=== PATIENT | female | born 1995 | race African-American/Black ===

== ENCOUNTER 2018-03-01 00:34 | Inpatient (IN) | payer BC, OTHER ==
[~2018-03-01 00:34] MED LIST: DEPO400I IM; PENVK500 PO
[2018-03-01 00:37] VITALS: BP 156/79; PULSE 114; RESP 15; TEMP 100.3; O2SAT 100
--- NOTE | 2018-03-01 01:22 | PD ---
HPI Chief Complaint: Skin Problem Time Seen by Provider: 00:59 Travel History International Travel<30 days: No Contact w/Intl Traveler<30days: No Traveled to known affect area: No History of Present Illness HPI The patient is a 22 year old female who presents to the [facility] emergency department with a history of left buttock pain that began 3 days ago. She reports that it began after she used [employer] for hair removal. She reports that initially she thought that she had an ingrown hair, however the area of swelling and redness has increased with size. She denies having any known fevers at home. She denies having any nausea, vomiting, or diarrhea. The patient has a history of valvular abnormalities of her heart and reports that she needs pretreatment with antibiotic when she has any procedures. Otherwise on review of systems, the patient denies having any recent cough or congestion, neck pain, chest pain, shortness of breath, abdominal pain, vaginal discharge, urinary symptoms, or neurologic symptoms. 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, and aortic insufficiency, anxiety disorder, history of scoliosis Anxiety: Yes Heart Rhythm Problems: Yes (HEART MURMUR) Cardiovascular Problems: Yes (STS LEAKY HEART VALVE) Diminished Hearing: No Musculoskeletal: Yes (FRACTURED LEFT FOOT, SCOLEOSIS) Immunizations Current: Yes Influenza Vaccination: No ?: Not LMP: 02/23/2018 : 0 Past Surgical History Surgical History: No Previous Surgery Social History Alcohol Use: No Tobacco Use: No Substance Use: No Allergies-Medications (Allergen,Severity, Reaction): Coded Allergies: vancomycin (Verified Allergy, Severe, ITCHING, HIVES, 03/01/18) Reported Meds & Prescriptions Reported Meds & Active Scripts Active Penicillin V Potassium 500 Mg Tab 500 Mg PO TID 10 Days Reported Depo-Provera (Medroxyprogesterone Acetate) 400 Mg/Ml Inj 150 Mg IM Q90D Review of Systems Except as stated in HPI: all other systems reviewed are Neg General / Constitutional: No: Fever Eyes: No: Visual changes HENT: No: Headaches Cardiovascular: No: Chest Pain or Discomfort Respiratory: No: Shortness of Breath Gastrointestinal: No: Nausea, Vomiting, Diarrhea, Abdominal Pain Genitourinary: No: Dysuria Musculoskeletal: Positive: Pain Skin: Positive Rash, Positive Lumps Neurologic: No: Weakness, Focal Abnormalities, Change in Mentation, Slurred Speech, Sensory Disturbance Psychiatric: No: Depression Endocrine: No: Polydipsia Hematologic/Lymphatic: No: Easy Bruising Physical Exam Narrative General: The patient is a well-developed well-nourished female, uncomfortable appearing on arrival related to left buttock pain. Head and Neck exam: Head is normocephalic atraumatic. Eyes: EOMI, pupils are equal round and reactive to light. Nose: Midline septum with pink mucous membranes Mouth: Dentition unremarkable. Moist mucus membranes. Posterior oropharynx is not erythematous. No tonsillar hypertrophy. Uvula midline. Airway patent. Neck: No palpable lymphadenopathy. No nuchal rigidity. No thyromegaly. Cardiovascular: Sinus tachycardia in the 1 teens with a 1/6 murmur, no gallops or rub. No pulse deficit to the extremities on simultaneous auscultation and palpation of her radial artery. Lungs: Clear to auscultation bilaterally. No wheezes, rhonchi, or rales. Abdomen: Soft, without tenderness to palpation in all 4 quadrants of the abdomen. No guarding, rebound, or rigidity. Normal bowel sounds are audible. No tenderness on palpation of McBurney's point. Negative Almeida sign. Extremities: No clubbing, cyanosis, or edema. 2+ pulses in all 4 extremities. Back: No spinous process tenderness to palpation. No costovertebral angle tenderness to palpation. Neurologic Exam: Grossly nonfocal. Skin Exam: The patient was placed in a frog-leg position on the bedpan to further examine the area of interest. The patient was noted to have swelling, redness, warmth, tenderness on palpation along the left side of the perineum and left buttock area. This extends posteriorly along the buttock most caudal aspect. There is no pointing noted. There is no palpable fluctuance. There is no crepitus. Intact skin that is warm and dry. Data Data Last Documented VS Vital Signs Date Time Temp Pulse Resp B/P (MAP) Pulse Ox O2 Delivery O2 Flow Rate FiO2 03/01/18 01:47 17 100 Room Air 03/01/18 00:37 100.3 114 156/79 (104) Orders Orders Complete Blood Count With Diff (03/01/18 01:17) Comprehensive Metabolic Panel (03/01/18 01:17) Blood Culture (03/01/18 01:17) C-Reactive Protein (Crp) (03/01/18 01:17) Lipase (03/01/18:17) Urinalysis - C+S If Indicated (03/01/18:17) Iv Access Insert/Monitor (03/01/18 01:17) Ecg Monitoring (03/01/18:17) Oximetry (03/01/18:17) Ed Urine Pregnancytest Poc (03/01/18 01:17) Lactic Acid Sepsis Protocol (03/01/18 01:17) Us Soft Tissue (03/01/18 ) Sodium Chlor 0.9% 1000 Ml Inj (Ns 1000 M (03/01/18 01:45) Piperacil-Tazo 3.375 Gm Premix (Zosyn 3. (03/01/18 01:45) Vancomycin Inj (Vancomycin Inj) (03/01/18 01:45) Urine Culture (03/01/18 01:30) Acetaminophen (Tylenol) (03/01/18 03:30) Admit Order (Ed Use Only) (03/01/18 03:38) Labs Laboratory Tests Test 03/01/18 01:30 03/01/18 01:40 Urine Color YELLOW Urine Turbidity HAZY Urine pH 7.0 Urine Specific [place] 1.026 Urine Protein 30 mg/dL Urine Glucose (UA) NEG mg/dL Urine Ketones TRACE mg/dL Urine Occult Blood MOD Urine Nitrite NEG Urine Bilirubin NEG Urine Urobilinogen 2.0 MG/DL Urine Leukocyte Esterase MOD Urine RBC 9 /hpf Urine WBC 42 /hpf Urine Squamous Epithelial Cells 12 /hpf Urine Transitional Epithelial Cells <1 /hpf Urine Renal Epithelial Cells <1 /hpf Urine Bacteria OCC /hpf Urine Hyaline Casts 2 /lpf Urine Mucus FEW /lpf Microscopic Urinalysis Comment CULTURE INDICATED White Blood Count 18.3 TH/MM3 Red Blood Count 4.36 MIL/MM3 Hemoglobin 11.0 GM/DL Hematocrit 34.3 % Mean Corpuscular Volume 78.8 FL Mean Corpuscular Hemoglobin 25.3 PG Mean Corpuscular Hemoglobin Concent 32.1 % Red Cell Distribution Width 13.5 % Platelet Count 339 TH/MM3 Mean Platelet Volume 7.6 FL Neutrophils (%) (Auto) 74.3 % Lymphocytes (%) (Auto) 13.4 % Monocytes (%) (Auto) 11.9 % Eosinophils (%) (Auto) 0.1 % Basophils (%) (Auto) 0.3 % Neutrophils # (Auto) 13.6 TH/MM3 Lymphocytes # (Auto) 2.5 TH/MM3 Monocytes # (Auto) 2.2 TH/MM3 Eosinophils # (Auto) 0.0 TH/MM3 Basophils # (Auto) 0.1 TH/MM3 CBC Comment AUTO DIFF Differential Total Cells Counted 100 Neutrophils % (Manual) 81 % Band Neutrophils % 1 % Lymphocytes % 13 % Monocytes % 4 % Basophils % 1 % Neutrophils # (Manual) 15.0 TH/MM3 Differential Comment FINAL DIFF MANUAL Platelet Estimate NORMAL Platelet Morphology Comment NORMAL Red Cell Morphology Comment Blood Urea Nitrogen 10 MG/DL Creatinine 1.06 MG/DL Random Glucose 71 MG/DL Total Protein 8.0 GM/DL Albumin 3.7 GM/DL Calcium Level 8.5 MG/DL Alkaline Phosphatase 72 U/L Aspartate Amino Transf (AST/SGOT) 10 U/L Alanine Aminotransferase (ALT/SGPT) 17 U/L Total Bilirubin 0.4 MG/DL Sodium Level 140 MEQ/L Potassium Level 3.6 MEQ/L Chloride Level 105 MEQ/L Carbon Dioxide Level 25.4 MEQ/L Anion Gap 10 MEQ/L Estimat Glomerular Filtration Rate 80 ML/MIN Lactic Acid Level 1.4 mmol/L C-Reactive Protein 8.74 MG/DL Lipase 273 U/L MDM Medical Decision Making Medical Screen Exam Complete: Yes Emergency Medical Condition: Yes Medical Record Reviewed: Yes Differential Diagnosis Cellulitis, versus abscess, versus myositis, versus necrotizing fasciitis Narrative Course During the course of the patient's emergency department visit, the patient's history, examination, and differential diagnosis were reviewed with the patient. The patient was placed on a personnel monitor with oximetry and frequent blood pressure monitoring. The patient had IV access obtained and blood work sent for analysis. An ultrasound of the soft tissues has been ordered to evaluate for underlying abscess The patient was initially provided normal saline 1 L IV fluid bolus, Zosyn 3.375 g IV, vancomycin 1 g IV. The patient's laboratory studies were reviewed and remarkable for a white count of 18.3 with a left shift and 81 neutrophils, 1 band, hemoglobin 11, platelets 339 8.74, lipase 273, lactic acid 1.4. Urinalysis shows 30 protein trace ketones moderate occult blood 9 RBCs, 42 WBCs, occasional bacteria, culture indicated. Radiology studies were reviewed and remarkable for Last Impressions Soft Tissue Ultrasound 03/01/18 0000 Signed Impressions: Service Date/Time: Thursday, March 01, 2018 02:28 - CONCLUSION: Complex hypoechoic collection most characteristic of an abscess. Jonas Donis MD A call was placed out that the [facility] residents, however was informed that the patient has no longer followed by them as she was last seen in the clinic over 3 years ago. A call was then placed out to the [facility] service for admission. The patient's results were discussed with the patient, including the plan of care. I explained that further testing and/ or monitoring is indicated based on the patient's history, examination, and/ or laboratory findings. Therefore, I recommended admission for additional evaluation. The patient expressed understanding and was agreeable with this plan. The patient was admitted to the hospital in guarded condition and sent to a bed under the care of the [facility] service. Sepsis Criteria SIRS Criteria (2 or more): Heart rate over 90, WBC > 33583, < 4000 or > 10% bands Sepsis Criteria (SIRS+source): Infect source susp/known Physician Communication Physician Communication The patient's case including history, pertinent physical examination findings, and laboratory studies were discussed with Dr. Mcclain. It was agreed that the patient would be admitted to the [facility] service. Diagnosis Primary Impression: Cellulitis of left buttock Additional Impression: Abscess of left buttock Admitting Information Admitting Physician Requests: Admit Emma Velazco MD March 01, 2018 01:22
[2018-03-01] MEDS ORDERED: PIPERACIL-TAZO 3.375 GM PREMIX 50 ML IV ONE (01:45)
[2018-03-01] MEDS ORDERED: VANCOMYCIN INJ 1,000 MG in SODIUM CHLOR 0.9% 250 ML INJ 250 ML IV ONE (01:45)
[2018-03-01] MEDS ORDERED: SODIUM CHLOR 0.9% 1000 ML INJ 1,000 ML IV ONE (01:45)
[2018-03-01 01:47] VITALS: RESP 17; O2SAT 100
[2018-03-01 01:54] LABS: AUTOMATED NEUTROPHIL # 13.6 TH/MM3 (1.8-7.7); BASOPHIL # 0.1 TH/MM3 (0-0.2); BASOPHIL % 0.3 % (0.0-2.0); EOSINOPHIL % 0.1 % (0.0-4.0); HEMATOCRIT 34.3 % (35.0-46.0); LYMPH % 13.4 % (9.0-44.0); LYMPHOCYTE # 2.5 TH/MM3 (1.0-4.8); MEAN CELL VOLUME 78.8 FL (80.0-100.0); MEAN CORPUSCULAR HEMOGLOBIN 25.3 PG (27.0-34.0); MEAN CORPUSCULAR HGB CONC 32.1 % (32.0-36.0); MEAN PLATELET VOLUME 7.6 FL (7.0-11.0); MONO % 11.9 % (0.0-8.0); MONOCYTE # 2.2 TH/MM3 (0-0.9); NEUT % 74.3 % (16.0-70.0); PLATELET COUNT 339 TH/MM3 (150-450); RED BLOOD COUNT 4.36 MIL/MM3 (4.00-5.30); RED CELL DISTRIBUTION WIDTH 13.5 % (11.6-17.2); WHITE BLOOD COUNT 18.3 TH/MM3 (4.0-11.0)
[2018-03-01 02:04] LABS: BILIRUBIN, URINE NEG (NEG); BLOOD, URINE MOD (NEG); GLUCOSE,URINE NEG (NEG); HYALINE CAST, URINE 2 /lpf (RARE); KETONE, URINE TRACE mg/dL (NEG); MUCUS URINE FEW /lpf (OCC); NITRITE,URINE NEG (NEG); RENAL EPITHELIAL CELLS <1 /hpf; SQUAMOUS EPITHELIAL CELL URINE 12 /hpf (0-5); TRANSITIONAL EPI CELLS, URINE <1 /hpf; URINE COLOR YELLOW (YELLW/STRAW); URINE LEUKOCYTE ESTERASE MOD (NEG)
[2018-03-01 02:05] LABS: BACTERIA, URINE OCC /hpf
[2018-03-01 02:10] LABS: ALBUMIN 3.7 GM/DL (3.4-5.0); ALT (GPT) 17 U/L (9-42); AST (GOT) 10 U/L (16-38); BICARBONATE 25.4 MEQ/L (21.0-32.0); BLOOD UREA NITROGEN 10 MG/DL (7-18); C-REACTIVE PROTEIN 8.74 MG/DL (0.00-0.30); CALCIUM 8.5 MG/DL (8.5-10.1); CHLORIDE 105 MEQ/L (98-107); CREATININE 1.06 MG/DL (0.50-1.00); GLOMERULAR FILTRATION RATE 80 ML/MIN (>89); GLUCOSE,RANDOM 71 MG/DL (74-106); SODIUM (NA) 140 MEQ/L (136-145)
[2018-03-01 02:12] LABS: ALKALINE PHOSPHATASE 72 U/L (45-117); TOTAL BILIRUBIN ADULT 0.4 MG/DL (0.2-1.0)
[2018-03-01 02:23] LABS: BANDS 1 % (0-6); BASOPHILS 1 % (0-2); LYMPHOCYTES 13 % (9-44); MONOCYTES 4 % (0-8); POLYS (SEG NEUTROPHILS) 81 % (16-70)
--- NOTE | 2018-03-01 03:04 | RADRPT ---
EXAM DATE/TIME: 03/01/2018 02:28 [place] COMPARISON: No previous studies available for comparison. INDICATIONS : Left buttock abscess. MEDICAL HISTORY : Aneurysm, abdominal. Leaky heart valve. Heart murmur. Anxiety. Scoliosis. aNXIETY. SURGICAL HISTORY : None. ENCOUNTER: Initial ACUITY: 3 days PAIN SCORE: 10/10 LOCATION: Left buttock AREA EVALUATED: Left buttock/perineum. FINDINGS: A targeted ultrasound examination was performed along the left buttox and perineal region and demonst rate a complex hypoechoic collection measuring up to 3.9 x 3.4 x 1.6 cm. There is adjacent increased color-flow in the soft tissues. CONCLUSION: Complex hypoechoic collection most characteristic of an abscess. Jonas Donis MD on March 01, 2018 at 3:01 Board Certified Radiologist. This report was verified electronically.
[2018-03-01] MEDS: ACETAMINOPHEN 325 MG TAB PO ONE ×2 (03:30→03:40)
[2018-03-01] MEDS ORDERED: SODIUM CHLOR 0.9% 1000 ML INJ 1,000 ML IV SCH (03:37)
[2018-03-01] MEDS ORDERED: BISACODYL 10 MG SUPP RECTAL PRN (03:45)
[2018-03-01] MEDS ORDERED: MAGNESIUM HYDROXIDE SUSP 30 ML CUP PO PRN (03:45)
[2018-03-01] MEDS ORDERED: SODIUM CHLORIDE 0.9% FLUSH 10 ML FLUSH IV FLUSH PRN (03:45)
[2018-03-01] MEDS ORDERED: LACTULOSE SYRUP 20 GM/30 ML CUP PO PRN (03:45)
[2018-03-01] MEDS ORDERED: Vancomycin Consult Pharmacy 1 EA OTHER SCH (03:45)
[2018-03-01] MEDS ORDERED: ACETAMINOPHEN 325 MG TAB PO PRN (03:45)
[2018-03-01] MEDS ORDERED: diphenhydrAMINE HCL 50 MG/ML VIAL IV PUSH ONE (03:45)
[2018-03-01] MEDS ORDERED: ACETAMINOPHEN/HYDROcodone 325 MG/5 MG TAB PO PRN (03:45)
[2018-03-01] MEDS ORDERED: SENNOSIDES 8.6 MG TAB PO PRN (03:45)
[2018-03-01] MEDS ORDERED: METOCLOPRAMIDE HCL 10 MG/2 ML VIAL IV PUSH PRN (03:45)
[2018-03-01] MEDS ORDERED: CLINDAMYCIN 900 MG/NS PREMIX 50 ML IV SCH (04:00)
[2018-03-01] MEDS ORDERED: MORPHINE SULFATE 4 MG/ML INJ IV PRN (04:00)
[2018-03-01] MEDS ORDERED: PIPERACIL-TAZO 4.5 GM PREMIX 100 ML IV SCH (08:00)
[2018-03-01] MEDS ORDERED: DOCUSATE SODIUM 50 MG/SENNA 8.6 MG TAB PO SCH (09:00)
[2018-03-01] MEDS ORDERED: SODIUM CHLORIDE 0.9% FLUSH 10 ML FLUSH IV FLUSH SCH (09:00)
== END 2018-03-01 04:45 | disposition left against medical advice (07) | DRG 603 ==
LOC: NEPE 00:34 → NEDA 03:40
PROVIDERS: ADMIT Hospitalist; ATTEND Hospitalist
DX: L03.317 Cellulitis of buttock (principal); F41.9 Anxiety disorder, unspecified; L02.31 Cutaneous abscess of buttock; L50.9 Urticaria, unspecified; T36.8X5A Adverse effect of other systemic antibiotics, initial encounter; R01.1 Cardiac murmur, unspecified; I35.1 Nonrheumatic aortic (valve) insufficiency
CPT/HCPCS: 76999; 80053; 81001; 83605; 83690; 84703; 85007; 85027; 86140; 87040; 87086; J1200; J2543; J3370; J7030; J7050